=== PATIENT | female | born 1950 | race Caucasian/White ===

== ENCOUNTER 2017-05-22 01:44 | Emergency (ER) | payer MEDICARE, OTHER ==
[~2017-05-22] VITALS: Ht 152.4 cm; Wt 77.3 kg
[~2017-05-22 01:44] MED LIST: AMIT10 PO; ATOR40TA49 PO; FIORIC PO; HYCO5UDC PO; PROT40TA PO; SUMA50 PO; TOPR25TA2 PO
[2017-05-22 01:46] VITALS: BP 156/82; PULSE 97; RESP 18; TEMP 98.2; O2SAT 95
[2017-05-22 02:11] VITALS: BP 156/82; PULSE 97; RESP 20; TEMP 97; O2SAT 95
--- NOTE | 2017-05-22 02:22 | PD ---
HPI Chief Complaint: Abdominal Pain Time Seen by Provider: 02:19 Travel History International Travel<30 days: No Contact w/Intl Traveler<30days: No Traveled to known affect area: No History of Present Illness HPI The patient is a 66-year-old female that complains of left upper quadrant pain since yesterday afternoon. She denies any nausea, vomiting, fever, dysuria, frequency or urgency. She is never had this pain before. She denies any history kidney stones. PFSH Past Medical History Blood Disorders: No Anxiety: No Depression: No Heart Rhythm Problems: No Cancer: No Cardiac Catheterization: No Cardiovascular Problems: Yes High Cholesterol: Yes Congestive Heart Failure: No Diabetes: No Endocrine: No Gastrointestinal Disorders: Yes (GASTRITIS, ESOPHAGITIS, DIVERTICULOSIS) GERD: Yes Genitourinary: No Hypertension: Yes Immune Disorder: No Implanted Vascular Access Dvce: No Musculoskeletal: Yes Neurologic: Yes Psychiatric: No Reproductive: No Respiratory: No Migraines: Yes Tetanus Vaccination: Unknown Influenza Vaccination: Yes Menopausal: Yes Tubal Ligation: Yes Past Surgical History Coronary Artery Bypass Graft: No Other Surgery: Yes Social History Alcohol Use: No Tobacco Use: No Substance Use: No Allergies-Medications (Allergen,Severity, Reaction): Coded Allergies: Iodine and Iodide Containing Produc (Verified Allergy, Severe, 05/22/17) shellfish derived (Unverified Allergy, Severe, STRONG RXN ON TESTING, ) Reported Meds & Prescriptions Reported Meds & Active Scripts Active Reported Calcium 500 +D (Calcium Carbonate-Cholecalciferol) 500-400 Mg-Unit Tab 1 Tab PO BID Coq10 (Coenzyme Q10 (Ubidecarenone)) 50 Mg Cap 200 Mg PO DAILY Imitrex (Sumatriptan Succinate) 25 Mg Tab 25 Mg PO ONCE PRN If a satisfactory response has not been obtained at 2 hours, a second dose may be administered Hydrocodone-Acetaminophen 5-325 mg Tab 1 Tab PO Q4H PRN Flexeril (Cyclobenzaprine HCl) 10 Mg Tab 10 Mg PO TID Amitriptyline (Amitriptyline HCl) 50 Mg Tab 50 Mg PO HS Lipitor (Atorvastatin Calcium) 10 Mg Tab 10 Mg PO HS Protonix (Pantoprazole Sodium) 20 Mg Tab 20 Mg PO DAILY Metoprolol Tartrate 25 Mg Tab 12.5 Mg PO BID Zyrtec (Cetirizine HCl) 10 Mg Capsule 10 Mg PO DAILY Review of Systems Except as stated in HPI: all other systems reviewed are Neg Physical Exam Narrative GENERAL: Patient is alert, oriented 3 in moderate apparent distress with her left upper abdominal pain. Her vital signs show blood pressure 156/82 but otherwise to normal. SKIN: Focused skin assessment warm/dry. HEAD: Atraumatic. Normocephalic. EYES: Pupils equal and round. No scleral icterus. No injection or drainage. ENT: No nasal bleeding or discharge. Mucous membranes pink and moist. NECK: Trachea midline. No JVD. CARDIOVASCULAR: Regular rate and rhythm. No murmur appreciated. RESPIRATORY: No accessory muscle use. Clear to auscultation. Breath sounds equal bilaterally. GASTROINTESTINAL: Abdomen soft, with tenderness to direct palpation of the left upper quadrant, nondistended. Hepatic and splenic margins not palpable. No guarding or rebound is present. There is also tenderness on the left floating ribs in that area. MUSCULOSKELETAL: No obvious deformities. No clubbing. No cyanosis. No edema. NEUROLOGICAL: Awake and alert. No obvious cranial nerve deficits. Motor grossly within normal limits. Normal speech. PSYCHIATRIC: Appropriate mood and affect; insight and judgment normal. Data Data Last Documented VS Vital Signs Date Time Temp Pulse Resp B/P (MAP) Pulse Ox O2 Delivery O2 Flow Rate FiO2 05/22/17 04:03 97.6 84 16 145/88 (107) 99 Room Air Orders Orders Complete Blood Count With Diff (05/22/17 02:19) Comprehensive Metabolic Panel (05/22/17 02:19) Lipase (05/22/17 02:19) Urinalysis - C+S If Indicated (05/22/17 02:19) Iv Access Insert/Monitor (05/22/17 02:19) Ecg Monitoring (05/22/17 02:19) Oximetry (05/22/17 02:19) Sodium Chloride 0.9% Flush (Ns Flush) (05/22/17 02:30) Ct Abd/Pel W/O Iv Contrast (05/22/17 02:19) Metronidazole 500 Mg Inj (Flagyl 500 Mg (05/22/17 04:45) Ciprofloxacin (Cipro) (05/22/17 05:00) Labs Laboratory Tests Test 05/22/17 02:10 05/22/17 03:50 White Blood Count 8.6 TH/MM3 Red Blood Count 4.31 MIL/MM3 Hemoglobin 12.9 GM/DL Hematocrit 40.4 % Mean Corpuscular Volume 93.6 FL Mean Corpuscular Hemoglobin 29.9 PG Mean Corpuscular Hemoglobin Concent 31.9 % Red Cell Distribution Width 13.3 % Platelet Count 310 TH/MM3 Mean Platelet Volume 7.6 FL Neutrophils (%) (Auto) 67.3 % Lymphocytes (%) (Auto) 25.2 % Monocytes (%) (Auto) 4.6 % Eosinophils (%) (Auto) 2.4 % Basophils (%) (Auto) 0.5 % Neutrophils # (Auto) 5.8 TH/MM3 Lymphocytes # (Auto) 2.2 TH/MM3 Monocytes # (Auto) 0.4 TH/MM3 Eosinophils # (Auto) 0.2 TH/MM3 Basophils # (Auto) 0.0 TH/MM3 CBC Comment DIFF FINAL Differential Comment Blood Urea Nitrogen 10 MG/DL Creatinine 0.92 MG/DL Random Glucose 107 MG/DL Total Protein 7.3 GM/DL Albumin 3.3 GM/DL Calcium Level 8.8 MG/DL Alkaline Phosphatase 106 U/L Aspartate Amino Transf (AST/SGOT) 27 U/L Alanine Aminotransferase (ALT/SGPT) 28 U/L Total Bilirubin 0.4 MG/DL Sodium Level 139 MEQ/L Potassium Level 3.9 MEQ/L Chloride Level 103 MEQ/L Carbon Dioxide Level 29.0 MEQ/L Anion Gap 7 MEQ/L Estimat Glomerular Filtration Rate 61 ML/MIN Lipase 116 U/L Urine Color STRAW Urine Turbidity CLEAR Urine pH 6.0 Urine Specific Mary D 1.006 Urine Protein NEG mg/dL Urine Glucose (UA) NEG mg/dL Urine Ketones NEG mg/dL Urine Occult Blood NEG Urine Nitrite NEG Urine Bilirubin NEG Urine Leukocyte Esterase NEG Urine RBC 0-3 /hpf Urine Squamous Epithelial Cells 0-5 /hpf Microscopic Urinalysis Comment CULT NOT INDICATED MDM Medical Decision Making Medical Screen Exam Complete: Yes Emergency Medical Condition: Yes Medical Record Reviewed: Yes Interpretation(s) The urinalysis is normal. The CBC is normal. The complete metabolic profile shows a GFR of 61 and albumen 3.3 but is otherwise normal. The lipase is normal. The CT abdomen and pelvis without contrast shows acute diverticulitis involving the descending colon. No abscess, perforation or obstruction is present. Differential Diagnosis Pyelonephritis, pancreatitis, diverticulitis, splenic hematoma, colitis Narrative Course The patient has diverticulitis of the descending colon. She was offered admission or trying with oral antibiotics at home. She opted to try with oral antibiotics and home. If she does not get better she will return to the emergency department or her primary care physician to be admitted. She will be given Flagyl and ciprofloxacin by mouth for 10 days. She will follow up with Dr. Abbasi this week. Diagnosis Primary Impression: Diverticulitis large intestine Additional Instructions: The Flagyl is one tablet 3 times daily and the Cipro is one tablet twice daily. Do not drink alcohol with your these medications. Follow-up with Dr. Abbasi this week. Med/Other Pt SpecificInfo: Prescription(s) given Scripts Hydrocodone-Acetaminophen (Hydrocodone-Acetaminophen) 5-325 mg Tab 1 TAB PO Q4H Y for PAIN, #30 TAB 0 Refills Prov: Stan Luna MD 05/22/17 Metronidazole (Flagyl) 500 Mg Tab 500 MG PO TID for Infection for 14 Days, TAB 0 Refills Prov: Stan Luna MD 05/22/17 Ciprofloxacin (Cipro) 500 Mg Tab 500 MG PO BID for Infection for 14 Days, #28 TAB 0 Refills Prov: Stan Luna MD 05/22/17 Disposition: 01 DISCHARGE HOME Condition: Stable Stan Luna MD May 22, 2017 02:22
[2017-05-22] MEDS ORDERED: IMIT25TA PO (02:27)
[2017-05-22] MEDS ORDERED: PANT20 PO (02:27)
[2017-05-22] MEDS ORDERED: HYDR-3516 PO ×2 (02:27→04:52)
[2017-05-22] MEDS ORDERED: CYCL10TA PO (02:27)
[2017-05-22] MEDS ORDERED: METO25TA3 PO (02:27)
[2017-05-22] MEDS ORDERED: LIPI10TA PO (02:27)
[2017-05-22] MEDS ORDERED: AMIT50TA3 PO (02:27)
[2017-05-22] MEDS ORDERED: COQ-30CA2 (02:27)
[2017-05-22] MEDS ORDERED: CALC1TAB12 PO (02:27)
[2017-05-22] MEDS ORDERED: CETI10CA3 PO (02:27)
[2017-05-22] MEDS ORDERED: COQ150CA PO (02:27)
[2017-05-22 02:30] LABS: AUTOMATED NEUTROPHIL # 5.8 TH/MM3 (1.8-7.7); BASOPHIL % 0.5 % (0.0-2.0); EOSINOPHIL # 0.2 TH/MM3 (0-0.4); EOSINOPHIL % 2.4 % (0.0-4.0); HEMATOCRIT 40.4 % (35.0-46.0); HEMOGLOBIN 12.9 GM/DL (11.6-15.3); LYMPH % 25.2 % (9.0-44.0); LYMPHOCYTE # 2.2 TH/MM3 (1.0-4.8); MEAN CELL VOLUME 93.6 FL (80.0-100.0); MEAN CORPUSCULAR HEMOGLOBIN 29.9 PG (27.0-34.0); MEAN CORPUSCULAR HGB CONC 31.9 % (32.0-36.0); MEAN PLATELET VOLUME 7.6 FL (7.0-11.0); MONO % 4.6 % (0.0-8.0); MONOCYTE # 0.4 TH/MM3 (0-0.9); NEUT % 67.3 % (16.0-70.0); PLATELET COUNT 310 TH/MM3 (150-450); RED BLOOD COUNT 4.31 MIL/MM3 (4.00-5.30); RED CELL DISTRIBUTION WIDTH 13.3 % (11.6-17.2); WHITE BLOOD COUNT 8.6 TH/MM3 (4.0-11.0)
[2017-05-22] MEDS ORDERED: SODIUM CHLORIDE 0.9% FLUSH 10 ML FLUSH IV FLUSH PRN (02:30)
[2017-05-22 02:37] LABS: CHLORIDE 103 MEQ/L (98-107); SODIUM (NA) 139 MEQ/L (136-145)
[2017-05-22 02:40] LABS: CALCIUM 8.8 MG/DL (8.5-10.1)
[2017-05-22 02:41] LABS: ALBUMIN 3.3 GM/DL (3.4-5.0); BLOOD UREA NITROGEN 10 MG/DL (7-18); GLUCOSE,RANDOM 107 MG/DL (74-106); LIPASE 116 U/L (73-393)
[2017-05-22 02:43] LABS: ALT (GPT) 28 U/L (10-53); AST (GOT) 27 U/L (15-37); CREATININE 0.92 MG/DL (0.50-1.00); GLOMERULAR FILTRATION RATE 61 ML/MIN (>89)
[2017-05-22 02:45] LABS: TOTAL BILIRUBIN ADULT 0.4 MG/DL (0.2-1.0); TOTAL PROTEIN 7.3 GM/DL (6.4-8.2)
[2017-05-22 02:46] LABS: ALKALINE PHOSPHATASE 106 U/L (45-117)
[2017-05-22 04:03] VITALS: BP 145/88; PULSE 84; RESP 16; TEMP 97.6; O2SAT 99
[2017-05-22 04:05] LABS: BILIRUBIN, URINE NEG (NEG); BLOOD, URINE NEG (NEG); GLUCOSE,URINE NEG (NEG); KETONE, URINE NEG (NEG); NITRITE,URINE NEG (NEG); URINE LEUKOCYTE ESTERASE NEG (NEG)
[2017-05-22 04:11] LABS: SQUAMOUS EPITHELIAL CELL URINE 0-5 /hpf (0-5); URINE COLOR STRAW (YELLW/STRAW)
[2017-05-22 04:13] LABS: RBC, URINE 0-3 /hpf (0-3)
--- NOTE | 2017-05-22 04:21 | RADRPT ---
EXAM DATE/TIME: 05/22/2017 03:37 [facility] COMPARISON: No previous studies available for comparison. INDICATIONS : Left upper quadrant pain. ORAL CONTRAST: No oral contrast ingested. RADIATION DOSE: 17.84 CTDIvol (mGy) MEDICAL HISTORY : Cardiovascular disease. Hypertension. SURGICAL HISTORY : Tubal ligation. ENCOUNTER: Initial ACUITY: 1 day PAIN SCALE: 5/10 LOCATION: Left Abdomen TECHNIQUE: Volumetric scanning of the abdomen and pelvis was performed. Using automated exposure control and ad justment of the mA and/or kV according to patient size, radiation dose was kept as low as reasonably achievable to obtain optimal diagnostic quality images. DICOM format image data is available electro nically for review and comparison. FINDINGS: LOWER LUNGS: The visualized lower lungs are clear. Tiny hiatal hernia. LIVER: Homogeneous density without lesion. There is no dilation of the biliary tree. No calcified gallston es. SPLEEN: Normal size without lesion. PANCREAS: Within normal limits. KIDNEYS: Normal in size and shape. There is no mass, stone, or hydronephrosis. ADRENAL GLANDS: Within normal limits. VASCULAR: There is no aortic aneurysm. BOWEL/MESENTERY: There is eccentric wall thickening involving the proximal descending colon. Stranding of the adjacent fat. Multiple diverticula scattered throughout the colon including this region. They are most pronou nced within the sigmoid region. Remaining bowel structures are unremarkable. No free air or free flui d. ABDOMINAL WALL: Within normal limits. RETROPERITONEUM: There is no lymphadenopathy. BLADDER: No wall thickening or mass. REPRODUCTIVE: Within normal limits. INGUINAL: There is no lymphadenopathy or hernia. MUSCULOSKELETAL: A degenerative lumbar spine. CONCLUSION: 1. Acute diverticulitis involving the descending colon. No abscess, perforation, or obstruction. Prieto Mullen Jr., MD on May 22, 2017 at 4:18 Board Certified Radiologist. This report was verified electronically.
[2017-05-22] MEDS ORDERED: metroNIDAZOLE 500 MG INJ 100 ML IV ONE (04:45)
[2017-05-22] MEDS ORDERED: CIPR-9 PO (04:50)
[2017-05-22] MEDS ORDERED: METR-1 PO (04:50)
[2017-05-22] MEDS ORDERED: CIPROFLOXACIN 750 MG TAB PO ONE (05:00)
[2017-05-22] MEDS ORDERED: HYDROmorphone HCL PF 2 MG/ML VIAL IV PUSH ONE (05:15)
[2017-05-22 05:59] VITALS: BP 113/77; PULSE 90; RESP 16; O2SAT 94
== END 2017-05-22 06:06 | disposition home or self-care (01) ==
LOC: PHED 01:44
DX: K57.32 Diverticulitis of large intestine without perforation or abscess without bleeding (principal); I10 Essential (primary) hypertension; K21.9 Gastro-esophageal reflux disease without esophagitis; E78.00 Pure hypercholesterolemia, unspecified; G43.909 Migraine, unspecified, not intractable, without status migrainosus; Z86.79 Personal history of other diseases of the circulatory system; Z87.19 Personal history of other diseases of the digestive system; Z87.39 Personal history of other diseases of the musculoskeletal system and connective tissue
CPT/HCPCS: 74176; 80053; 81001; 83690; 85025; 96365; 96375; 99284; J1170

== ENCOUNTER 2017-10-01 10:58 | Emergency (ER) | payer MEDICARE ==
[~2017-10-01] VITALS: Ht 154.9 cm; Wt 75.1 kg
[~2017-10-01 10:58] MED LIST changes: -AMIT10 PO; +AMIT50TA3 PO; -ATOR40TA49 PO; +CALC1TAB12 PO; +CETI10CA3 PO; +CIPR-9 PO; +COQ150CA PO; +CYCL10TA PO; -FIORIC PO; -HYCO5UDC PO; +HYDR-3516 PO; +IMIT25TA PO; +LIPI10TA PO; +METO25TA3 PO; +METR-1 PO; +PANT20 PO; -PROT40TA PO; -SUMA50 PO; -TOPR25TA2 PO
[2017-10-01 11:10] VITALS: BP 134/77; PULSE 75; RESP 16; TEMP 98.2; O2SAT 95
[2017-10-01] MEDS ORDERED: MELO15TA20 PO (11:38)
[2017-10-01] MEDS ORDERED: MORPHINE SULFATE 4 MG/ML INJ IV PUSH ONE (12:00)
[2017-10-01 12:17] LABS: AUTOMATED NEUTROPHIL # 3.8 TH/MM3 (1.8-7.7); BASOPHIL % 0.7 % (0.0-2.0); EOSINOPHIL # 0.2 TH/MM3 (0-0.4); EOSINOPHIL % 4.2 % (0.0-4.0); HEMATOCRIT 37.7 % (35.0-46.0); HEMOGLOBIN 12.4 GM/DL (11.6-15.3); LYMPH % 23.2 % (9.0-44.0); LYMPHOCYTE # 1.3 TH/MM3 (1.0-4.8); MEAN CELL VOLUME 92.9 FL (80.0-100.0); MEAN CORPUSCULAR HEMOGLOBIN 30.4 PG (27.0-34.0); MEAN CORPUSCULAR HGB CONC 32.8 % (32.0-36.0); MEAN PLATELET VOLUME 7.6 FL (7.0-11.0); MONO % 6.8 % (0.0-8.0); MONOCYTE # 0.4 TH/MM3 (0-0.9); NEUT % 65.1 % (16.0-70.0); PLATELET COUNT 263 TH/MM3 (150-450); RED BLOOD COUNT 4.06 MIL/MM3 (4.00-5.30); RED CELL DISTRIBUTION WIDTH 13.6 % (11.6-17.2); WHITE BLOOD COUNT 5.8 TH/MM3 (4.0-11.0)
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
[2017-10-01 12:40] LABS: BICARBONATE 27.2 MEQ/L (21.0-32.0)
[2017-10-01 12:43] LABS: CREATININE 0.93 MG/DL (0.50-1.00)
--- NOTE | 2017-10-01 13:00 | RADRPT ---
EXAM DATE/TIME: 10/01/2017 12:38 [facility] COMPARISON: CT ABDOMEN & PELVIS W/O CONTRAST, May 22, 2017, 3:37. INDICATIONS : Fall. Left sided abdominal and inguinal pain. ORAL CONTRAST: No oral contrast ingested. RADIATION DOSE: 18.07 CTDIvol (mGy) MEDICAL HISTORY : Hypertension. Diverticulosis. SURGICAL HISTORY : Tubal ligation. ENCOUNTER: Initial ACUITY: 1 day PAIN SCALE: 4/10 LOCATION: Left pelvis abdomen TECHNIQUE: Volumetric scanning of the abdomen and pelvis was performed. Using automated exposure control and ad justment of the mA and/or kV according to patient size, radiation dose was kept as low as reasonably achievable to obtain optimal diagnostic quality images. DICOM format image data is available electro nically for review and comparison. FINDINGS: The lower lungs are clear. The liver, spleen, pancreas and adrenal glands are unremarkable Right and left kidneys appear normal There is no free fluid Moderate stool throughout the colon. Multiple Diverticuli in the descending and sigmoid colon without significant inflammatory changes. In the pelvis diverticuli can continue into the distal sigmoid. Bladder and adnexal regions are unremarkable There is no free fluid Review of bone windows reveals moderate degenerative changes in the thoracolumbar spine. CONCLUSION: Multiple diverticuli descending sigmoid colon without diverticulitis I do not see evidence of acute injury Spleen is unremarkable Extensive degenerative changes frac lumbar spine. Keith Reyes MD FACR on October 01, 2017 at 12:55 Board Certified Radiologist. This report was verified electronically.
--- NOTE | 2017-10-01 13:02 | RADRPT ---
EXAM DATE/TIME: 10/01/2017 12:21 [facility] COMPARISON: CT ABDOMEN & PELVIS W/O CONTRAST, October 01, 2017, 12:38. INDICATIONS : Fell, has left chest wall area pain MEDICAL HISTORY : Hypertension. SURGICAL HISTORY : None. ENCOUNTER: Initial ACUITY: 1 day PAIN SCORE: 7/10 LOCATION: Left chest FINDINGS: Very minimal parenchymal changes left base. There is no pneumothorax I do not see the left rib fracture. CONCLUSION: Negative for rib fracture or pneumothorax. CT scan of the abdomen and pelvis unremar kable for acute traumatic injury.. Keith Reyes MD FACR on October 01, 2017 at 12:58 Board Certified Radiologist. This report was verified electronically.
[2017-10-01 13:56] VITALS: BP 142/79
[2017-10-01] MEDS ORDERED: TYLE325T PO (13:59)
== END 2017-10-01 14:22 | disposition home or self-care (01) ==
LOC: PHED 10:58
DX: R07.81 Pleurodynia (principal); R10.10 Upper abdominal pain, unspecified; M89.8X8 Other specified disorders of bone, other site; W19.XXXA Unspecified fall, initial encounter; E78.00 Pure hypercholesterolemia, unspecified; K21.9 Gastro-esophageal reflux disease without esophagitis; I10 Essential (primary) hypertension
CPT/HCPCS: 71101; 74176; 80048; 85025; 96374; 99285; J2270